=== PATIENT | male | born 1995 | race Caucasian/White ===

== ENCOUNTER 2017-09-28 06:00 | Emergency (ER) | payer MEDICAID, OTHER ==
[~2017-09-28] VITALS: Ht 180.3 cm; Wt 72.6 kg
[~2017-09-28 06:00] MED LIST: LEVO500T15 PO
--- NOTE | 2017-09-28 06:06 | NUR ---
PT BIB RA WITH A C/O NAUSEA. PT STATED THAT HE MAY HAVE FOOD POISONING. PT IS C/O THROAT AND STOMACH PAIN. PT AMBUATED TO BED #3 WITH A STEADY GAIT.
[2017-09-28] MEDS ORDERED: ONDANSETRON 4 MG TAB.RAPDIS ONE (06:20)
[2017-09-28] MEDS ORDERED: ONDANSETRON 4 MG TAB.RAPDIS PO ONE (06:30)
--- NOTE | 2017-09-28 06:45 | NUR ---
PT APPEARS TO BE SLEEPING COMFORTABLY. WOKE PT UP TO HAVE HIM CALL HIS MOTHER TO PICK HIM UP. PT WOKE UP AND SAID OK. PT WALKED TO THE ER PHONE, BUT DECIDED TO USE HIS CELL PHONE TO CALL HIS MOM. PT STARTED TO CRY WHEN HE CALLED HIS MOM. PT STATED THAT SHE DID NOT ANSWER.
--- NOTE | 2017-09-28 06:58 | NUR ---
Patient discharged to home in stable condition. Written and verbal after care instructions given. Patient verbalizes understanding of instruction AND RX. PT AMBULATED TO THE LOBBY WITH A STEADY GAIT. PT STARTED CRYING HE AMBULATED OUT. VSS.
[2017-09-28 07:03] VITALS: BP 123/75
== END 2017-09-28 07:10 | disposition home or self-care (01) ==
LOC: ER 06:02
DX: R11.0 Nausea (principal); F31.9 Bipolar disorder, unspecified
CPT/HCPCS: 99283; A4606; Q0162; Z7610

== ENCOUNTER 2017-09-28 07:36 | Emergency (ER) | payer MEDICAID ==
[~2017-09-28] VITALS: Ht 175.3 cm; Wt 68.0 kg
[2017-09-28 10:51] VITALS: BP 123/68
== END 2017-09-28 10:52 | disposition home or self-care (01) ==
LOC: ER 07:39
DX: F15.920 Other stimulant use, unspecified with intoxication, uncomplicated (principal); F31.9 Bipolar disorder, unspecified
CPT/HCPCS: A4606; Z7610

== ENCOUNTER 2018-12-10 23:02 | Emergency (ER) | payer MEDICAID ==
[~2018-12-10] VITALS: Ht 175.3 cm; Wt 81.6 kg
[~2018-12-10 23:02] MED LIST changes: -LEVO500T15 PO; +LEVO500T75 PO
--- NOTE | 2018-12-10 23:04 | NUR ---
PT BIBRA FOR POSSIBLE ETOH, PT NOT ANSWERING QUESTIONS APPROPRIETLY, PT ON MONITOR, NAD NOTED, VSS, PENDING MD HASKINS
[2018-12-10 23:22] LABS: BASOPHILS % (AUTO) 0.8 % (0.0-2.0); EOSINOPHILS % (AUTO) 1.7 % (0.0-6.0); HEMATOCRIT 39 % (39-51); HEMOGLOBIN 13.4 g/dL (13.5-17.5); LYMPHOCYTES # (AUTO) 2.4 /CMM (0.8-4.8); LYMPHOCYTES % (AUTO) 35.8 % (20.0-44.0); MEAN CORPUSCULAR HGB CONC 34 g/dl (31.0-36.0); MEAN CORPUSCULAR VOLUME 87 fL (80-96); MONOCYTES # (AUTO) 0.4 /CMM (0.1-1.30); MONOCYTES % (AUTO) 6.8 % (2.0-12.0); NEUTROPHILS # (AUTO) 3.7 /CMM (1.8-8.9); NEUTROPHILS % (AUTO) 54.9 % (43.0-81.0); PLATELET COUNT (AUTO) 195 /CMM (150-450); WHITE BLOOD COUNT (AUTO) 6.6 K/uL (4.3-11.0)
--- NOTE | 2018-12-10 23:26 | NUR ---
EMT AT BEDSIDE TO SIT WITH PATIENT.
[2018-12-10 23:30] LABS: CALCIUM, SERUM 8.6 mg/dL (8.5-10.1); CARBON DIOXIDE 26 mmol/L (21-32); CHLORIDE 105 mmol/L (98-107); CREATININE 0.8 mg/dL (0.6-1.3); GLUCOSE 90 mg/dL (74-106); POTASSIUM 3.5 mmol/L (3.5-5.1); SODIUM SERUM 140 mmol/L (136-145); UREA NITROGEN, BLOOD 9 mg/dL (7-18)
[2018-12-10 23:35] LABS: ALANINE AMINOTRANSFERASE 18 U/L (12-78); ALBUMIN 3.9 g/dL (3.4-5.0); ALCOHOL, BLOOD 5 mg/dL (0-0); ALKALINE PHOSPHATASE 70 U/L (46-116); ASPARTATE AMINOTRANSFERASE 19 U/L (15-37); BILIRUBIN,DIRECT 0.1 mg/dL (0.0-0.2); BILIRUBIN,TOTAL 0.1 mg/dL (0.2-1.0); SALICYLATE 0.7 mg/dL (2.8-20.0); TOTAL PROTEIN, SERUM 7.9 g/dL (6.4-8.2)
[2018-12-10 23:36] LABS: ACETAMINOPHEN < 10 ug/ml (10-30)
[2018-12-11 00:34] LABS: APPEARANCE,URINE CLEAR (CLEAR); BILIRUBIN,URINE NEGATIVE (NEGATIVE); BLOOD, URINE NEGATIVE Ery/uL (NEGATIVE); COLOR,URINE YELLOW (YELLOW); KETONES,URINE NEGATIVE (NEGATIVE); LEUKOCYTE ESTERASE ,URINE NEGATIVE (NEGATIVE); NITRITE, URINE NEGATIVE (NEGATIVE); PH,URINE 7.5 (5.0-8.0); PROTEIN,URINE NEGATIVE (NEGATIVE); UGLUCOSE NEGATIVE (NEGATIVE); UROBILINOGEN,URINE 0.2 EU/dL (0.2)
--- NOTE | 2018-12-11 00:51 | NUR ---
ART AT BEDSIDE SPEAKING WITH PATIENT.
--- NOTE | 2018-12-11 01:00 | NUR ---
PT AMBULATORY WITH STEADY GAIT
[2018-12-11 01:19] VITALS: BP 130/64
--- NOTE | 2018-12-11 01:20 | NUR ---
Patient discharged to home in stable condition. Written and verbal after care instructions given. Patient verbalizes understanding of instruction.
[2018-12-11] MEDS ORDERED: OLANZAPINE 10 MG VIAL IM ONE (01:30)
== END 2018-12-11 01:21 | disposition home or self-care (01) ==
LOC: ER 23:04
DX: T51.91XA Toxic effect of unspecified alcohol, accidental (unintentional), initial encounter (principal); R11.0 Nausea; F41.9 Anxiety disorder, unspecified; Z60.2 Problems related to living alone; Y92.89 Other specified places as the place of occurrence of the external cause
CPT/HCPCS: 36415; 80048; 80076; 80305; 80307; 80329; 81001; 85025; 99283; A4606; G0480; 81000-TC